=== PATIENT | female | born 1945 | race Caucasian/White ===

== ENCOUNTER → 2016-12-06 | Outpatient (CLI) | payer MEDICARE ==
[~2016-12-06] MED LIST: ASA CHILDREN'S81 MG PO; ATORVASTATIN CA40 MG PO; FISH OIL 1,0001 EAC5 PO; IRON325 M1 PO; LEVOTHYROXINE75 MCG PO; LEVOTHYROXINE88 MCG PO; LISINOPRIL-HCT1 EAC1 PO; NORVASC5 MG PO; OYSCO 500+D TA1 EACH PO; PERCOCET 5-3251 EACH PO; PRILOSEC DPS20 MG PO; SENOKOT-S TABL1 EACH PO
== END | disposition home or self-care (01) ==
LOC: RAD.S 11:24
DX: Z12.31 Encounter for screening mammogram for malignant neoplasm of breast (principal); R92.1 Mammographic calcification found on diagnostic imaging of breast; N63 Unspecified lump in breast